=== PATIENT | male | born 1965 | race Caucasian/White ===

== ENCOUNTER 2016-10-12 17:35 | Observation (INO) ==
[~2016-10-12 17:35] MED LIST: Aminoglycoside Consult 1 EACH MC ONE
[2016-10-12] MEDS ORDERED: Vancomycin 1,000 MG in D5% in Water 250 ML IVPB ONE (17:45)
[2016-10-12] MEDS ORDERED: 0.9 % Sodium Chloride 1,000 ML IVC SCH (17:45)
[2016-10-12] MEDS ORDERED: Doxycycline 200 MG in 0.9 % Sodium Chloride Mini Bag 100 ML IVPB ONE (17:45)
--- NOTE | 2016-10-12 17:45 | Emergency Department Note ---
Disposition Clinical Impression: Cellulitis Qualifiers: Site of cellulitis: extremity Site of cellulitis of extremity: lower extremity Laterality: right Qualified Code(s): L03.115 - Cellulitis of right lower limb Disposition: Admitted As Inpatient Condition: Good Extremity Problem HPI - General Chief complaint: ED Extremity Problem,Nontraumatic Stated complaint: tick bite Time Seen by Provider: 10/12/16 17:41 Source: patient Mode of arrival: private vehicle Limitations: no limitations Nursing Notes Reviewed: Yes Vital Signs Reviewed: Yes - History of Present Illness HPI Narrative: The patient relates that he was in [facility] about 4 days ago and felt that he might have sustained a bite on his right leg. The more he scratched it that night the better it felt. He thinks he might of had a tick bite but he never did see any type of insect. He has gradually had increased swelling and redness about the lateral side of his right calf extending now all the way down to the foot. He has had fevers, chills, nausea and vomiting. He denies chest pain, palpitation or shortness of breath. He is not having abdominal pain or bowel or back problems. He has other spots of insect bites or scabs but no other spot of inflammation. He denies history of DVT or PE. All of his pain and swelling is over the anterior and lateral side of the right calf extending down to the dorsum of the right foot. He denies any pain to the mid calf or any distal numbness, tingling or weakness. He has not had pain moving proximally towards the thigh. Pt Subjective Complaint: extremity pain, extremity swelling Onset (ago): day(s) (4) Consistency: Worsening Injury Location: right, lower extremity Pain Scale: 9 Quality: burning, aching, dull Radiation: none Improves with: nothing Worsens with: range of motion, weight bearing, walking, palpation Associated symptoms: Reports: fever, rash, change in appearance, swelling, redness. Denies: chest pain, shortness of breath, abdominal pain, back pain, bowel/bladder symptoms, myalgias, arthralgias Context: other (Possible insect bite) - Related Data Home Medications Medication Instructions Recorded Confirmed No Known Home Drugs 10/12/16 10/12/16 Allergies Allergy/AdvReac Type Severity Reaction Status Date / Time No Known Allergies Allergy Verified 05/04/17 17:37 All systems ED: reviewed and negative except as stated. Past Medical History - Past Medical History Attestation: Yes The following information was validated with the patient. Source: patient, nursing notes reviewed Medical history: Reports: no medical history Psychiatric history: Reports: no psych history - Social History Smoking Status: Current every day smoker Smokeless Tobacco Status: No Alcohol use: Reports: none Drug use: Reports: none Physical Exam - General Limitations: no limitations General appearance: alert, in no apparent distress - Head Head exam: atraumatic, normocephalic, normal inspection - Eye Eye exam: Present: normal appearance, PERRL, EOMI. Absent: scleral icterus - ENT ENT exam: normal exam, normal oropharynx, mucous membranes moist - Neck Neck exam: Present: normal inspection, full ROM, trachea midline - Respiratory Respiratory exam: Present: normal lung sounds bilaterally. Absent: respiratory distress, wheezes, prolonged expiratory phase - Cardiovascular Cardiovascular exam: Present: regular rate, normal rhythm, normal heart sounds - Abdominal Exam Abdominal exam: Present: soft, Non-Tender, normal bowel sounds. Absent: tenderness, distention, guarding, rebound, rigidity - Expanded Lower Extremity Exam Upper leg exam: Present: normal inspection, full ROM. Absent: tenderness, swelling Knee exam: Present: normal inspection, full ROM. Absent: tenderness, swelling Lower leg exam: Present: normal inspection, full ROM Neurovascular/Tendon exam: Present: normal capillary refill. Absent: motor deficit, sensory deficit, tendon deficit Gait: antalgic - Back Exam Back exam: Present: normal inspection, full ROM. Absent: tenderness, CVA tenderness (R), CVA tenderness (L) - Neurological Exam Neurological exam: Present: alert, oriented X3 - Psychiatric Psychiatric exam: Present: normal affect, normal mood - Skin Skin exam: Present: warm, dry, intact, normal color. Absent: diaphoresis, pallor Course Course Narrative: 1930: We are able to get inpatient venous Doppler of the patient's right leg. I discussed care with Dr. Ortiz who is agreeable with his admission to the hospital and has given verbal orders. He states Dr. Avery Rodarte who will be covering tomorrow and through the weekend and would like us to also call to Dr. Avery Rodarte. Vital Signs Temperature 98.1 F 10/12/16 17:35 Pulse Rate 90 10/12/16 17:35 Respiratory Rate 16 10/12/16 17:35 Blood Pressure 145/91 10/12/16 17:35 O2 Sat by Pulse Oximetry 100 10/12/16 17:35 Temperature 98.1 F 10/12/16 17:35 Pulse Rate 84 10/12/16 19:07 Respiratory Rate 16 10/12/16 19:07 Blood Pressure 151/93 10/12/16 19:07 O2 Sat by Pulse Oximetry 100 10/12/16 17:35 Oxygen Delivery Oxygen Delivery Room Air Extremity Problem, Nontraumati - Differential Diagnosis Likely: cellulitis, deep venous thrombosis - Lab Data Lab results reviewed: Yes I reviewed the patient's lab results. Result diagrams: 10/12/16 18:04 10/12/16 18:04 Lab Results 10/12/16 10/12/16 10/12/16 Range/Units 18:04 18:04 18:04 WBC 15.8 H (4.3-11.1) K/mcL RBC 4.75 (4.19-5.50) M/mcL Hgb 14.1 (12.9-16.9) g/dL Hct 39.9 (37.5-50.1) % MCV 84.0 (83.0-100.0) fL MCH 29.7 (28.0-33.3) pg MCHC 35.3 (31.6-35.5) g/dL RDW 12.7 (11.5-14.5) % Plt Count 222 (140-400) K/mcL MPV 10.6 (9.4-12.4) fL Immature Gran % 0.5 (0-4) % Seg Neutrophils % 79.1 % Lymphocytes % 10.1 % Monocytes % 7.6 % Eosinophils % 2.2 % Basophils % 0.5 % Neutrophils # 12.5 H (1.6-8.9) K/mcL Lymphocytes # 1.6 (0.6-4.6) K/mcL Monocytes # 1.2 (0.0-1.3) K/mcL Eosinophils # 0.4 (0.0-0.6) K/mcL Basophils # 0.1 (0.0-0.2) K/mcL D-Dimer 1103 H (0-500) ng/mLFEU Sodium 140 (136-145) mEq/L Potassium 3.2 L (3.5-4.5) mEq/L Chloride 104 (98-109) mEq/L Carbon Dioxide 24 (19-29) mEq/L BUN 12 (8-26) mg/dL Creatinine 0.96 (0.72-1.25) mg/dL Est GFR ( Amer) > 60 (> 60) Est GFR (Non-Af Amer) > 60 (> 60) BUN/Creatinine Ratio 13 (6-26) Glucose 182 H (70-99) mg/dL Calculated Osmolality 294 (280-300) Calcium 9.1 (8.6-10.8) mg/dL
[2016-10-12] MEDS ORDERED: *HR* HYDROmorphone (PF) 1 MG/ML SYRINGE IVP ONE (17:51)
[2016-10-12] MEDS ORDERED: Ondansetron 4 MG/2 ML VIAL IVP ONE (17:51)
[2016-10-12 18:11] LABS: Basophils # 0.1 K/mcL (0.0-0.2); Basophils % 0.5 %; Eosinophils % 2.2 %; Hematocrit 39.9 % (37.5-50.1); Hemoglobin 14.1 g/dL (12.9-16.9); Immature Granulocytes % 0.5 % (0-4); Lymphocytes # 1.6 K/mcL (0.6-4.6); Lymphocytes % 10.1 %; Mean Corpuscular HGB Conc 35.3 g/dL (31.6-35.5); Mean Corpuscular Hemoglobin 29.7 pg (28.0-33.3); Mean Platelet Volume 10.6 fL (9.4-12.4); Monocytes # 1.2 K/mcL (0.0-1.3); Monocytes % 7.6 %; Neutrophils # 12.5 K/mcL (1.6-8.9); Platelet Count 222 K/mcL (140-400); Red Blood Count 4.75 M/mcL (4.19-5.50); Red Cell Distribution Width 12.7 % (11.5-14.5); Segmented Neutrophils % 79.1 %
[2016-10-12 18:14] LABS: Eosinophils # 0.4 K/mcL (0.0-0.6)
[2016-10-12 18:27] LABS: BUN/Creatinine Ratio 13 (6-26); Blood Urea Nitrogen 12 mg/dL (8-26); Calcium 9.1 mg/dL (8.6-10.8); Carbon Dioxide 24 mEq/L (19-29); Chloride 104 mEq/L (98-109); Glucose 182 mg/dL (70-99); Osmolality,Calculated 294 (280-300); Potassium 3.2 mEq/L (3.5-4.5); Sodium 140 mEq/L (136-145); eGFR For African Americans > 60 (> 60); eGFR For Non-African Americans > 60 (> 60)
[2016-10-12] MEDS ORDERED: *HR* Enoxaparin 80 MG/0.8 ML SYRINGE SQ STA (18:59)
[2016-10-12] MEDS ORDERED: Vancomycin 1,250 MG in D5% in Water 250 ML IVPB SCH (20:14)
[2016-10-12] MEDS ORDERED: Naloxone 0.4 MG/ML INJ IVP PRN (20:14)
[2016-10-12] MEDS ORDERED: MOM Conc 10 ML UD.LIQ PO PRN (20:14)
[2016-10-12] MEDS ORDERED: Ondansetron 4 MG/2 ML VIAL IVP PRN (20:14)
[2016-10-12] MEDS: Nicotine 21 MG PATCH.TD24 TD SCH (21:54)
[2016-10-13] MEDS: 0.9 % Sodium Chloride 1,000 ML IVC SCH ×2 (00:17→07:42)
[2016-10-13] MEDS: *HR* OxyCODONE Immed Rel 5 MG TABLET PO PRN ×2 (03:35→09:36)
[2016-10-13] MEDS ORDERED: Doxycycline 100 MG in 0.9 % Sodium Chloride Mini Bag 100 ML IVPB SCH (06:00)
[2016-10-13] MEDS ORDERED: *HR* Enoxaparin 80 MG/0.8 ML SYRINGE SQ SCH ×2 (06:00→18:00)
[2016-10-13 07:38] VITALS: BP 154/87
[2016-10-13] MEDS ORDERED: Vancomycin 1,250 MG in D5% in Water 250 ML IVPB SCH (09:00)
[2016-10-13] MEDS: Nicotine 21 MG PATCH.TD24 TD SCH (09:36)
--- NOTE | 2016-10-13 10:37 | Internal Med History&Physical ---
Date of Encounter: 10/14/16 Time of Encounter: 10:31 Assessment and Plan (1) Cellulitis Status: Acute Cellulitis without documented tick bite. No abscess. Will change to oral antibiotic regimen and monitor. Qualifiers: Site of cellulitis: extremity Site of cellulitis of extremity: lower extremity Laterality: right Qualified Code(s): L03.115 - Cellulitis of right lower limb (2) Essential hypertension Status: Acute Uncontrolled. Will place on thiazide. Low sodium diet as discussed. Internal Medicine - H&P: HPI Chief complaint: R leg redness and swelling Admitted From: Emergency Dept Plans for Post Hospital Care: Home History of present illness: Mr. Jean Baptiste is a 51 year old male with negative PMH and no PCP that presented to ER with a 3-4 d history of redness, swelling and warmth along outside of R leg. Pt notes that redness and warmth began at site of scab. He is uncertain if he had an insect or tick bite at that site. No insect was seen by patient. No tick was attached. Over the last four days, he has notes spreading of redness, warmth and swelling of R leg outward and down from region of scab. Leg has become progressively swollen and is tender. He noted considerable pain to the point that he was having difficulty walking on leg along with subjective fevers and chills. No SOB, cough, pleuritic chest pain or hemoptysis. Pt went to ER and had lab eval with leukocytosis and elevated d-dimer. A RMSF test was ordered as well. Pt was diagnosed with cellulitis and placed on IV vanc and doxy. Overnight, pt experienced near 30% improvement in leg pain, swelling and redness, which remains confined to outside of R lower leg. He is tolerating po and ambulating. He is very eager for discharge home this AM. Past Med Surg Social Fam HX - Past Medical History Medical history: no medical history Psychiatric history: no psych history - Past Surgical History Surgical History: no surgical history - Social History Smoking Status: Current every day smoker Smokeless Tobacco Status: No Alcohol use: none Drug use: none Internal Medicine - H&P: Meds Cephalexin [Keflex] 500 mg PO TID #30 capsule 10/13/16 [Rx] Hydrochlorothiazide 25 mg PO DAILY #30 tablet 10/13/16 [Rx] OxyCODONE/APAP 5/325 [Percocet 5/325 MG] 1 each PO Q4HR PRN #10 tablet 10/13/16 [Rx] Sulfamethoxazole/Trimeth DS [Bactrim Ds] 2 each PO BID #40 tablet 10/13/16 [Rx] Allergies No Known Allergies Allergy (Verified 10/12/16 17:37) All Systems PM: A 10-system review of systems was performed and is negative for pertinent findings except as documented above in the HPI. - Constitutional Vitals: Temp Pulse Resp BP Pulse Ox 97.8 F 78 18 154/87 97 10/13/16 07:37 10/13/16 07:37 10/13/16 07:37 10/13/16 07:37 10/13/16 07:37 Exam: Gen: Lying in bed, NAD HEENT: NC, AT Neck: Trachea midline, no mass Pulm: No respiratory distress, CTAB CV: Normal S1 and S2, RRR Abdomen: Soft, ND, NT Ext: no joint erythema, edema or warth, no calf tenderness bilaterally Neuro: No appreciable motor/sensor deficits Skin: approx [id number] erythematous patch with mild edema and warmth without induration noted involving R lateral lower extremity, a small approx 1cm scab noted involving mid superior region of erythematous patch, no crepitus, no attached insects Psych: A&Ox3 Internal Med - H&P Results - Labs CBC & Chem 7: 10/12/16 18:04 10/12/16 18:04
--- NOTE | 2016-10-13 10:48 | Discharge Summary ---
Date of Encounter: 10/14/16 Time of Encounter: 10:41 - Discharge Diagnosis (1) Cellulitis Priority: Primary Status: Acute Qualifiers: Site of cellulitis: extremity Site of cellulitis of extremity: lower extremity Laterality: right Qualified Code(s): L03.115 - Cellulitis of right lower limb (2) Essential hypertension Priority: Secondary Status: Chronic - Discharge Medications Prescriptions: OxyCODONE/APAP 5/325 [Percocet 5/325 MG] 1 each PO Q4HR PRN #10 tablet PRN Reason: Pain Cephalexin [Keflex] 500 mg PO TID #30 capsule Hydrochlorothiazide 25 mg PO DAILY #30 tablet Sulfamethoxazole/Trimeth DS [Bactrim Ds] 2 each PO BID #40 tablet Home Medications: Cephalexin [Keflex] 500 mg PO TID #30 capsule 10/13/16 [Rx] Hydrochlorothiazide 25 mg PO DAILY #30 tablet 10/13/16 [Rx] OxyCODONE/APAP 5/325 [Percocet 5/325 MG] 1 each PO Q4HR PRN #10 tablet 10/13/16 [Rx] Sulfamethoxazole/Trimeth DS [Bactrim Ds] 2 each PO BID #40 tablet 10/13/16 [Rx] Allergies/Adverse Reactions: Allergies No Known Allergies Allergy (Verified 10/12/16 17:37) - Notes to Outpatient Provider RMSF serology pending, although no tick bite confirmed. Pt aware to establish PCP and follow-up on results and BP. Date of admission: 10/12/16 19:50 Primary care physician: PCP NO Consults: none Discharging clinician: Avery Rodarte Anticipated date of discharge: 10/13/16 - Patient Status Disposition: Home, Self-Care Condition: Good Functional capacity at discharge: independent ambulation Overall status at discharge: patient is progressing back to baseline - Discharge Instructions Instructions: Cellulitis (DC), Chronic Hypertension (DC) Follow Up With: NO,PCP [Primary Care Provider] - 1 week (Dr. Rodarte requested 2-4 week follow up with PCP. Patient does not have PCP. Appointment made with que. 10/27/2016 @ 1115 am) - Diet and Activity Activity: resume usual activities as tolerated Diet: advance to your usual diet Interval History: Overnight, pt experienced near 30% improvement in leg pain, swelling and redness , which remains confined to outside of R lower leg. He is tolerating po and ambulating. He is very eager for discharge home this AM. No acute events. No complaints otherwise. Hospital course: Mr. Jean Baptiste is a 51 year old male admitted from the ER for R lower extremity cellulitis and elevated d-dimer. Pt had significant improvement in cellulitis with IV antibiotics. Exam is not consistent with DVT. D-dimer elevation likely related to acute inflammation from cellulitis. A doppler US of leg was ordered by ER, but deferred by patient. Patient will be transitioned to an affordable oral antibiotic regimen given uninsured status. He is to monitor leg closely for continued improvement and keep leg elevated. He will be started on a thiazide diuretic for elevated BP. Pt has been asked to establish a PCP in next 2-4 weeks to re-evaluate BP and f/u RMSF serology. He is to return to ER of acute worsening of RLE symptoms. Time spent discussing smoking cessation with patient: 3 to 10 minutes - Time Spent with Patient Total time spent providing and/or coordinating discharge services: Less than 30 minutes - Constitutional Vitals: Temp Pulse Resp BP Pulse Ox 97.8 F 78 18 154/87 97 10/13/16 07:37 10/13/16 07:37 10/13/16 07:37 10/13/16 07:37 10/13/16 07:37 Exam: See examination documented in HPI performed earlier today.
== END 2016-10-13 12:35 | disposition home or self-care (01) ==
LOC: EMEROOPIK 17:35 → INPPIK 17:35
PROVIDERS: ADMIT Internal Medicine; ATTEND Internal Medicine